=== PATIENT | female | born 1985 | race Caucasian/White ===

== ENCOUNTER 2016-07-29 10:53 | Observation (INO) | payer BC, OTHER ==
[~2016-07-29 10:53] MED LIST: GLYCOPYRROLATE INJ 0.4 MG/2 ML VIAL ONE; LIDOCAINE 2% INJ-PF (20 MG/ML) 10 ML AMPUL ONE; METOCLOPRAMIDE HCL INJ/PF 10 MG/2 ML SDV ONE; ONDANSETRON HCL INJ/PF 4 MG/2 ML SDV ONE; SUCCINYLCHOLINE CHLORIDE INJ 200 MG/10 ML VIAL ONE
[2016-07-29] MEDS ORDERED: NORMAL SALINE 1000 ML 1,000 ML IV ONE ×2 (11:23→16:14)
--- NOTE | 2016-07-29 11:23 | ER Document Report ---
ED Medical Screen (RME) - General Stated Complaint: RIGHT SIDE ABDOMINAL PAIN Time seen by provider: 11:20 Mode of Arrival: Wheelchair Information source: Patient Notes: 30-year-old G0 female sent by Dr. Spencer because of the amount of tenderness that she had and her right abdomen (possible surgical exam) this morning she went to [facility] on Friday due to fever or diarrhea nausea and vomiting and the transvaginal ultrasound and IV contrast CT showed a ruptured ovarian cyst. The pain is worse today. Last food intake was jello 3-5 @ 2100. LMP 05-11 I have greeted and performed a rapid initial assessment of this patient. A comprehensive ED assessment, evaluation of the patient, analysis of test results , and completion of the medical decision making process will be conducted by additional ED providers. - Related Data Allergies/Adverse Reactions: No Known Allergies Allergy (Verified 03/26/13 09:30) Past Medical History - Past Medical History Cardiac Medical History: Denies: Hx Coronary Artery Disease, Hx Hypertension Pulmonary Medical History: Denies: Hx Asthma Endocrine Medical History: Denies: Hx Diabetes Mellitus Type 1, Hx Diabetes Mellitus Type 2 - Immunizations Hx Diphtheria, Pertussis, Tetanus Vaccination: Yes Physical Exam - Vital signs Vitals: Temp Pulse Resp BP Pulse Ox 97.5 F 110 H 16 114/68 100 07/29/16 11:07/29/16 11:07/29/16 11:07/29/16 11:07/29/16 11:01 Course - Vital Signs Vital signs: Temp Pulse Resp BP Pulse Ox 97.5 F 110 H 16 114/68 100 07/29/16 11:01 07/29/16 11:07/29/16 11:01 07/29/16 11:01 07/29/16 11:01
[2016-07-29 12:03] LABS: ABSOLUTE EOSINOPHILS # (AUTO) 0.2 10^3/uL (0.0-0.6); ABSOLUTE LYMPHOCYTES (AUTO) 0.9 10^3/uL (0.5-4.7); ABSOLUTE MONOCYTES (AUTO) 0.9 10^3/uL (0.1-1.4); ABSOLUTE NEUT (AUTO) 9.7 10^3/uL (1.7-8.2); BASOPHILS % (AUTO) 0.4 % (0-2); EOSINOPHILS % (AUTO) 1.3 % (0-6); HEMATOCRIT 40.5 % (36.0-47.0); HEMOGLOBIN 13.5 g/dL (12.0-15.5); LYMPHOCYTES % (AUTO) 7.5 % (13-45); MEAN CORPUSCULAR HEMOGLOBIN 30.4 pg (27.0-33.4); MEAN CORPUSCULAR HGB CONC 33.3 g/dL (32.0-36.0); MEAN CORPUSCULAR VOLUME 91 fl (80-97); MONOCYTES % (AUTO) 7.7 % (3-13); RED BLOOD COUNT 4.44 10^6/uL (3.72-5.28); RED CELL DISTRIBUTION WIDTH 13.7 % (11.5-14.0); SEGMENTED NEUTROPHILS % (AUTO) 83.1 % (42-78); WHITE BLOOD COUNT 11.6 10^3/uL (4.0-10.5)
[2016-07-29] MEDS ORDERED: PROMETHAZINE HCL INJ 25 MG/1 ML VIAL IM ONE (12:24)
[2016-07-29 12:30] LABS: ALANINE AMINOTRANSFERASE 26 U/L (9-52); ALBUMIN 3.8 g/dL (3.5-5.0); ALKALINE PHOSPHATASE 68 U/L (38-126); ANION GAP 15 (5-19); ASPARTATE AMINO TRANSFERASE 16 U/L (14-36); BILIRUBIN,TOTAL 0.4 mg/dL (0.2-1.3); BLOOD UREA NITROGEN 10 mg/dL (7-20); CALCIUM 9.1 mg/dL (8.4-10.2); CARBON DIOXIDE 22 mmol/L (22-30); CHLORIDE 103 mmol/L (98-107); CREATININE RESULT 0.79 mg/dL (0.52-1.25); GLUCOSE 102 mg/dL (75-110); POTASSIUM 3.5 mmol/L (3.6-5.0); SODIUM 140.4 mmol/L (137-145); TOTAL PROTEIN 6.7 g/dL (6.3-8.2)
[2016-07-29] MEDS ORDERED: PROMETHAZINE HCL INJ 50 MG/1 ML VIAL IM ONE (13:00)
[2016-07-29] MEDS ORDERED: METOCLOPRAMIDE HCL INJ/PF 10 MG/2 ML SDV IV ONE (14:09)
[2016-07-29] MEDS ORDERED: DIPHENHYDRAMINE HCL 50 MG/ML VIAL IV ONE (14:09)
[2016-07-29] MEDS ORDERED: MORPHINE SULFATE 10 MG/ML INJ IV ONE (14:09)
[2016-07-29] MEDS ORDERED: HYDROMORPHONE HCL INJ/PF 2 MG/ML AMPULE IV ONE (14:31)
[2016-07-29] MEDS ORDERED: ONDANSETRON HCL INJ/PF 4 MG/2 ML SDV IV ONE (14:31)
--- NOTE | 2016-07-29 14:53 | ER Document Report ---
ED General - General Chief Complaint: Abdominal Pain Stated Complaint: RIGHT SIDE ABDOMINAL PAIN Mode of Arrival: Wheelchair Information source: Patient Notes: 22-year-old female presents with complaints of right lower quadrant pain. Patient notes the pain is generalized and worsens with palpation. She was seen a few days prior at an outside emergency department noted to have a ruptured cyst, encouraged to follow-up with [facility]. Patient went to [facility] today who sent her in for evaluation of her appendix Patient admits to nausea vomiting TRAVEL OUTSIDE OF THE [place] IN LAST 30 DAYS: No - HPI Onset: Other - 3-4 days Onset/Duration: Persistent Quality of pain: Achy Severity: Mild Pain Level: 2 Associated symptoms: Nausea, Vomiting Exacerbated by: Denies Relieved by: Denies Similar symptoms previously: Yes Recently seen / treated by doctor: Yes - Related Data Allergies/Adverse Reactions: No Known Allergies Allergy (Verified 03/26/13 09:30) Past Medical History - General Information source: Patient - Social History Smoking Status: Never Smoker Cigarette use (# per day): No Chew tobacco use (# tins/day): No Smoking Education Provided: No Frequency of alcohol use: Rare Drug Abuse: None Family History: Reviewed & Not Pertinent Patient has suicidal ideation: No Patient has homicidal ideation: No - Past Medical History Cardiac Medical History: Denies: Hx Coronary Artery Disease, Hx Hypertension Pulmonary Medical History: Denies: Hx Asthma Endocrine Medical History: Denies: Hx Diabetes Mellitus Type 1, Hx Diabetes Mellitus Type 2 Renal/ Medical History: Denies: Hx Peritoneal Dialysis - Immunizations Hx Diphtheria, Pertussis, Tetanus Vaccination: Yes Review of Systems - Review of Systems Notes: REVIEW OF SYSTEMS: CONSTITUTIONAL : Denies fever, chills, or sweats. Denies recent illness. EENT: Denies eye, ear, throat, or mouth pain or symptoms. Denies nasal or sinus congestion or discharge. Denies throat, tongue, or mouth swelling or difficulty swallowing. CARDIOVASCULAR: Denies chest pain. Denies palpitations or racing or irregular heart beat. Denies ankle edema. RESPIRATORY: Denies cough, cold, or chest congestion. Denies shortness of breath, difficulty breathing, or wheezing. GASTROINTESTINAL: Admits nausea vomiting abdominal pain GENITOURINARY: Denies difficulty urinating, painful urination, burning, frequency, blood in urine, or discharge. FEMALE GENITOURINARY: Denies vaginal bleeding, heavy or abnormal periods, irregular periods. Denies vaginal discharge or odor. MUSCULOSKELETAL: Denies back or neck pain or stiffness. Denies joint pain or swelling. SKIN: Denies rash, lesions or sores. HEMATOLOGIC : Denies easy bruising or bleeding. LYMPHATIC: Denies swollen, enlarged glands. NEUROLOGICAL: Denies confusion or altered mental status. Denies passing out or loss of consciousness. Denies dizziness or lightheadedness. Denies headache. Denies weakness or paralysis or loss of use of either side. Denies problems with gait or speech. Denies sensory loss, numbness, or tingling. Denies seizures. PSYCHIATRIC: Denies anxiety or stress. Denies depression, suicidal ideation, or homicidal ideation. ALL OTHER SYSTEMS REVIEWED AND NEGATIVE. Dictation was performed using [employer] voice recognition software PHYSICAL EXAMINATION: GENERAL: Well-appearing, well-nourished and in no acute distress. HEAD: Atraumatic, normocephalic. EYES: Pupils equal round and reactive to light, extraocular movements intact, conjunctiva are normal. ENT: Nares patent, oropharynx clear without exudates. Moist mucous membranes. NECK: Normal range of motion, supple without lymphadenopathy LUNGS: Breath sounds clear to auscultation bilaterally and equal. No wheezes rales or rhonchi. HEART: Regular rate and rhythm without murmurs ABDOMEN: Soft, generalized tenderness worse in the right lower quadrant with some guarding Female : deferred Musculoskeletal: Normal range of motion, no pitting or edema. No cyanosis. NEUROLOGICAL: Cranial nerves grossly intact. Normal speech, normal gait. Normal sensory, motor exams PSYCH: Normal mood, normal affect. SKIN: Warm, Dry, normal turgor, no rashes or lesions noted. Physical Exam - Vital signs Vitals: Temp Pulse Resp BP Pulse Ox 97.5 F 110 H 16 114/68 100 07/29/16 11:01 07/29/16 11:01 07/29/16 11:01 07/29/16 11:01 07/29/16 11:01 Course - Re-evaluation Re-evalutation: 07/29/16 14:53 CT of the abdomen is pending lab work notes no significant abnormality except mild white count 07/29/16 16:12 CT is consistent with acute appendicitis, Dr. Huang has been notified and will admit the patient to his service - Vital Signs Vital signs: Temp Pulse Resp BP Pulse Ox 97.5 F 110 H 16 114/68 100 07/29/16 11:01 07/29/16 11:01 07/29/16 11:01 07/29/16 11:01 07/29/16 11:01 - Laboratory Result Diagrams: 07/29/16 11:38 07/29/16 11:38 Laboratory results interpreted by me: 07/29/16 07/29/16 11:38 11:38 WBC 11.6 H Seg Neutrophils % 83.1 H Lymphocytes % 7.5 L Absolute Neutrophils 9.7 H Potassium 3.5 L - Diagnostic Test Radiology reviewed: Image reviewed, Reports reviewed Discharge - Discharge Clinical Impression: Tachycardia Acute appendicitis Qualifiers: Acute appendicitis type: with localized peritonitis Qualified Code(s): K35.3 - Acute appendicitis with localized peritonitis Condition: Stable Disposition: ADMITTED INPATIENT Admitting Provider: Surgicalist Unit Admitted: Surgical Floor
[2016-07-29] MEDS ORDERED: ERTAPENEM SODIUM INJ 1 GM VIAL IV ONE (16:09)
[2016-07-29] MEDS ORDERED: BUPIVACAINE HCL 0.25 % INJ/PF (2.5 MG/1 ML) 30 ML VIAL ONE (16:55)
[2016-07-29] MEDS ORDERED: FENTANYL CITRATE INJ/PF 250 MCG/5 ML AMPULE ONE (17:04)
[2016-07-29] MEDS ORDERED: MIDAZOLAM 2 MG/2 ML INJ ONE (17:04)
[2016-07-29] MEDS ORDERED: PROPOFOL INJ 200 MG/20 ML VIAL IV ONE (17:04)
--- NOTE | 2016-07-29 17:04 | PDOC H&P ---
History of Present Illness Admission Date/PCP: 07/29/16 16:44 ZAYNAB MUÑOZ NP History of Present Illness: TIMUR LEOS is a 30 year old female presents to the emergency department after being seen by Dr. Spangler, [facility] at [facility] today as part of the follow-up plan . 3 days ago the patient developed abdominal pain nonlocalized. He was seen in the emergency department at replaced by [facility] Friday. She had a CT scan of the abdomen and pelvis with IV contrast only was diagnosed with a ruptured ovarian cyst. She was Managed with pain medication and instructed to follow-up with Dr. Spangler today. Dr. Spangler examined the patient fell showed appendicitis and was sent to the emergency department. She had a repeat CT scan of the abdomen and pelvis with IV and oral contrast which showed findings consistent with acute appendicitis. Surgery was consulted and she was advised admission for definitive management. Past Medical History Cardiac Medical History: Denies: Coronary Artery Disease, Hypertension Pulmonary Medical History: Denies: Asthma Endocrine Medical History: Denies: Diabetes Mellitus Type 1, Diabetes Mellitus Type 2 Psychiatric History Note: History depression Past Surgical History Past Surgical History: Reports: None Social History Smoking Status: Never Smoker Frequency of Alcohol Use: None Hx Recreational Drug Use: No Hx Prescription Drug Abuse: No Family History Family History: Reviewed & Not Pertinent Parental Family History Reviewed: Yes Children Family History Reviewed: Yes Sibling(s) Family History Reviewed.: Yes Medication/Allergy Home Medications: Acetaminophen with Codeine [Tylenol #3 Tablet] 1 each PO Q4HP PRN #30 tablet 01/04 Penicillin V Potassium [Penicillin Vk 500 mg Tablet] 500 mg PO BID #20 tablet Cyclobenzaprine HCl [Flexeril 10 Mg Tablet] 10 mg PO TID #15 tablet 03/26/13 Oxycodone HCl/Acetaminophen [Percocet 5-325 mg Tablet] 1 - 2 tab PO ASDIR PRN # 25 tablet 03/26/13 Allergies/Adverse Reactions: No Known Allergies Allergy (Verified 03/26/13 09:30) Physical Exam Vital Signs: Temp Pulse Resp BP Pulse Ox 97.5 F 110 H 16 114/68 100 07/29/16 11:01 07/29/16 11:01 07/29/16 11:01 07/29/16 11:07/29/16 11:01 General appearance: PRESENT: mild distress Head exam: PRESENT: normocephalic Eye exam: PRESENT: EOMI Ear exam: PRESENT: normal external ear exam Mouth exam: PRESENT: moist Neck exam: PRESENT: full ROM Respiratory exam: PRESENT: clear to auscultation ruth Cardiovascular exam: PRESENT: RRR Pulses: PRESENT: normal carotid pulses, normal radial pulses, normal femoral pulses GI/Abdominal exam: PRESENT: other - Tender with guarding particularly right lower quadrant. Extremities exam: PRESENT: full ROM Musculoskeletal exam: PRESENT: full ROM Neurological exam: PRESENT: alert Psychiatric exam: PRESENT: anxious Skin exam: PRESENT: other - Normal Results Impressions: Abdomen/Pelvis CT 07/29/16 00:00 IMPRESSION: Acute appendicitis. Surgical consultation is recommended. Status: Image reviewed by me - Images reviewed by Dr. leach; no free air and no free fluid no phlegmon or cold excellent study with IV and oral contrast showing no evidence of bowel obstruction. There is maulik-appendiceal inflammatory y changes and thickened appendix wall. Assessment & Plan - Diagnosis (1) Acute appendicitis Qualifiers: Acute appendicitis type: with localized peritonitis Qualified Code(s): K35.3 - Acute appendicitis with localized peritonitis Is this a current diagnosis for this admission?: YesPlan: 1. Patient needs admission, obviously fluids, intravenous antibiotics, and operative appendectomy, laparoscopic possible open. This was discussed in detail with the patient including explanation of the risks , benefits and alternatives. She expressed understanding and agrees to proceed. - Time Time Spent: 50 to 70 Minutes Critical Time spent with patient: 15-24 minutes Anticipated discharge: Home
[2016-07-29] MEDS ORDERED: ACETAMINOPHEN 100 ML IV ONE (17:05)
[2016-07-29] MEDS ORDERED: MORPHINE SULFATE 10 MG/ML INJ ONE (17:05)
[2016-07-29] MEDS ORDERED: NORMAL SALINE 1000 ML 1,000 ML IV PRN (18:15)
[2016-07-29] MEDS ORDERED: PROMETHAZINE HCL INJ 25 MG/1 ML VIAL ONE (18:28)
--- NOTE | 2016-07-29 18:31 | Operative Report ---
Operative Report DATE OF SURGERY: 07/29/16 PREOPERATIVE DIAGNOSIS: acute appendicitis POSTOPERATIVE DIAGNOSIS: same OPERATION: Laparoscopic appendectomy SURGEON: TONJA AUSTIN ANESTHESIA: GA TISSUE REMOVED OR ALTERED: one appendix COMPLICATIONS: none ESTIMATED BLOOD LOSS: scant INTRAOPERATIVE FINDINGS: See below PROCEDURE: The patient was taken from the preoperative holding area to the main operating room general anesthesia was induced. The patient voided prior to induction of anesthesia. She was placed in supine position and general anesthesia was induced. The abdomen was exposed, prepped draped sterile fashion. A surgical timeout conducted. Skin was anesthetized with lidocaine with epinephrine.Verres needle inserted into the peritoneal cavity and pneumoperitoneum established. Veress needle was removed and a 5 mm ports was inserted and a 5 mm scope was inserted. There was no evidence of intra-abdominal or visceral injury. Under direct visualization 2 additional ports were placed one 5 mm suprapubic, and one 12 mm left lower quadrant. Findings were significant for acute appendicitis with a dilated edematous appendix readily apparent in the peritoneal cavity. Graspers were placed on the appendix and it was elevated medially and cephalad. The retroperitoneal attachments were released, and the appendix was suspended by the mesial appendix only. We brought onto the field a Endo auto stapler, blue load. Single firing of the stapler the base of the appendix transected the appendix and the appendiceal stump as well as the mesoappendix. This was placed in the Endobag and brought out of the patient to the left lower quadrant port site incision. We checked the right tube and ovary and photographed it for record keeping purposes. These 2 structures were essentially unremarkable. Checked our staple line and there was no significant bleeding. We'll level the patient checked for bleeding and there was none. Sponge counts correct. All ports removed under direct visualization ; pneumoperitoneum evacuated wounds, closed with 0 Vicryl 3-0 Vicryl benzoin and Steri-Strips Patient was extubated and taken to the recovery room in stable condition.
[2016-07-29] MEDS: MORPHINE SULFATE 10 MG/ML INJ IV PRN ×2 (20:04→23:13)
[2016-07-29] MEDS: ONDANSETRON HCL INJ/PF 4 MG/2 ML SDV IV PRN (20:04)
[2016-07-30] MEDS ORDERED: AZITHROMYCIN INJ 500 MG VIAL IV ONE ×2 (00:01→01:35)
[2016-07-30] MEDS: ONDANSETRON HCL INJ/PF 4 MG/2 ML SDV IV PRN ×3 (00:56→22:18)
[2016-07-30] MEDS: OXYCODONE-ACETAMINOPHEN 5-325 MG TABLET PO PRN ×4 (00:56→22:19)
[2016-07-30] MEDS: HYDROCODONE/ACETAMINOPHEN 5-325 MG TABLET PO PRN ×2 (12:28→18:39)
[2016-07-30 13:52] LABS: ABSOLUTE EOSINOPHILS # (AUTO) 0.2 10^3/uL (0.0-0.6); ABSOLUTE LYMPHOCYTES (AUTO) 1.4 10^3/uL (0.5-4.7); ABSOLUTE MONOCYTES (AUTO) 1.1 10^3/uL (0.1-1.4); ABSOLUTE NEUT (AUTO) 7.9 10^3/uL (1.7-8.2); BASOPHILS % (AUTO) 0.3 % (0-2); EOSINOPHILS % (AUTO) 2.2 % (0-6); HEMATOCRIT 32.2 % (36.0-47.0); HEMOGLOBIN 10.9 g/dL (12.0-15.5); HGB HCT DIFFERENCE 0.5; LYMPHOCYTES % (AUTO) 12.9 % (13-45); MEAN CORPUSCULAR HEMOGLOBIN 30.8 pg (27.0-33.4); MEAN CORPUSCULAR HGB CONC 33.7 g/dL (32.0-36.0); MEAN CORPUSCULAR VOLUME 91 fl (80-97); MONOCYTES % (AUTO) 10.4 % (3-13); RED BLOOD COUNT 3.53 10^6/uL (3.72-5.28); RED CELL DISTRIBUTION WIDTH 13.8 % (11.5-14.0); SEGMENTED NEUTROPHILS % (AUTO) 74.2 % (42-78); WHITE BLOOD COUNT 10.6 10^3/uL (4.0-10.5)
--- NOTE | 2016-07-30 18:39 | PROGRESS NOTE E ---
Progress Note NAME: TIMUR LEOS : 1985 AGE: 30Y DATE: 07/30/2016 ROOM: 413 SUBJECTIVE: The patient is postop day 1 from an uncomplicated laparoscopic appendectomy. The patient is complaining of nausea. She is able to drink liquids. She is having flatus. Her pain is controlled with the pain medication, although may be having associated nausea with it. OBJECTIVE: ABDOMEN: Incisions are clean without evidence of infection. No significant distention. No significant bruising. VITAL SIGNS: Temperature is 98.6. Pulse 120. Blood pressure 121/73. Respiratory rate is 18. ASSESSMENT: 1. STATUS POST LAPAROSCOPIC APPENDECTOMY. Her wounds are doing well with only mild nausea that may be related to the Percocet. I recommend switching over to [place]. Continue liquid diet and advance to regular as tolerated. 2. TACHYCARDIA OF UNKNOWN ETIOLOGY. Her heart rate has only been several times below 100 and has been running 110 to 140. She did not have any significant blood loss during surgery, and she should have been hydrated at this time. I would recommend getting follow-up EKG and checking her hemoglobin to make sure that she is not anemic. PLAN: 1. CBC. 2. A 12-lead EKG. 3. Switch to [place] to see if her nausea will improve. DICTATING PHYSICIAN: THAD HENDRIX M.D. [id number] PHY#: [id number] ID: [id number] JOB#: [id number] ACCT: [id number] cc:THAD HENDRIX M.D. >
[2016-07-30 20:32] LABS: ABSOLUTE EOSINOPHILS # (AUTO) 0.4 10^3/uL (0.0-0.6); ABSOLUTE LYMPHOCYTES (AUTO) 1.3 10^3/uL (0.5-4.7); ABSOLUTE NEUT (AUTO) 8.4 10^3/uL (1.7-8.2); BASOPHILS % (AUTO) 0.2 % (0-2); EOSINOPHILS % (AUTO) 3.2 % (0-6); HEMATOCRIT 32.6 % (36.0-47.0); HEMOGLOBIN 10.7 g/dL (12.0-15.5); HGB HCT DIFFERENCE -0.5; LYMPHOCYTES % (AUTO) 11.9 % (13-45); MEAN CORPUSCULAR HGB CONC 32.7 g/dL (32.0-36.0); MEAN CORPUSCULAR VOLUME 92 fl (80-97); MONOCYTES % (AUTO) 9.3 % (3-13); RED BLOOD COUNT 3.56 10^6/uL (3.72-5.28); RED CELL DISTRIBUTION WIDTH 13.6 % (11.5-14.0); SEGMENTED NEUTROPHILS % (AUTO) 75.4 % (42-78); WHITE BLOOD COUNT 11.2 10^3/uL (4.0-10.5)
[2016-07-30 20:56] LABS: ANION GAP 12 (5-19); BLOOD UREA NITROGEN 3 mg/dL (7-20); CALCIUM 8.6 mg/dL (8.4-10.2); CARBON DIOXIDE 24 mmol/L (22-30); CHLORIDE 101 mmol/L (98-107); GLUCOSE 123 mg/dL (75-110); MAGNESIUM 1.7 mg/dL (1.6-2.3); SODIUM 136.5 mmol/L (137-145)
[2016-07-30 21:05] LABS: POTASSIUM 2.7 mmol/L (3.6-5.0)
--- NOTE | 2016-07-30 21:34 | PDOC CONSULTATION ---
Consultation Consult Date: 07/30/16 Attending physician:: YULIYA HENDRIX Consult reason:: TACHYCARDIA History of Present Illness Admission Date/PCP: 07/29/16 16:55 ZAYNAB MUÑOZ NP Patient complains of: ABD PAIN History of Present Illness: 24-year-old female, with past medical history remarkable only for easy bruising, along with mild occasional anxiety and depression, without suicidal or homicidal ideation, status post laparoscopic appendectomy by Dr. Huang late the afternoon of the of this month, seen in consultation from the on-call surgeon today for evaluation of tachycardia. Patient has been discussed with daytime hospitalist who discussed the patient with the on-call surgeon . Please refer to emergency room physician notes, along with the admission history and physical and operative report by Dr. Huang. Patient was taken to the operating room where she underwent laparoscopic appendectomy for acute appendicitis. Review of the documentation reveals that she was out of the operating room at 6:15 PM on the . Review of her vital sign records Reveals a maximum pulse rate documented at 10: 30 PM on the of 142 with a pulse of 141 at 11 PM last night. Pulse of 130 at the time she left the operating room. Pulse of 110 at 11 AM yesterday. Pulse of 120 at 12:30 AM this morning. Since that time, her maximum pulse rate has been 116 at 8:11 PM this evening. At the bedside short while ago, her pulse was 108. There is no history of problems with rapid heart rate or other cardiac problems , including hypertension, myocardial infarction, congestive heart failure. No history of pulmonary embolus or DVT. No recent long trip with prolonged inactivity, or unusual lower extremity swelling or tenderness. No personal or family history of thyroid disease. Denies chest pain. States she gets occasional shortness of breath with one of her anxiety attacks, but this happens only approximately once every 2 weeks. Does describe approximately 10 episodes of diarrhea postoperatively. No blood. No history of C. difficile infection. History of MRSA skin infection in 2009. Has tolerated small amounts of by mouth intake since surgery. Has not ambulated much since the operation. Encouraged to ambulate more. Currently resting quietly, complaining of only mild abdominal discomfort. Laboratory results are listed in [facility] and are reviewed. X-ray summary results are listed below, with full report(s) reviewed. . EKG reviewed. No old EKG available for comparison. Social history/personal habits: . No children. Lives with . Is a process consultant. No use of alcohol tobacco or illicit drugs. Allergies/adverse reactions NKDA. Home medications consist only of one half milligram of Ativan twice a day when necessary for anxiety. States she takes this only once every 2 weeks or so. REVIEW OF SYSTEMS: Constitutional: No fever or chills. Eyes: No current vision complaints. ENT: No swallowing problems or complaints. No hearing problems or complaints. Pulmonary: No current complaints. Cardiovascular: See history and present illness. Gastrointestinal: See history and present illness. Skin: No current complaints, including rashes. Hematologic: Easy bruising. Neurologic: No current complaints, including numbness or tingling. Musculoskeletal: No current complaints, including painful joints. Psychiatric: Mild Anxiety depression; denies suicidal or homicidal ideation. Endocrine: No current complaints, including polyuria. Genitourinary: No current complaints, including dysuria. PHYSICAL EXAMINATION: 5 feet 6 inches tall. 78 kg. BMI 27.8 kg/m. Blood pressure 107/60. Pulse 108 and regular. Temperature 98.6. Respirations are 16 and unlabored. 98% saturation on room air. Slightly overweight otherwise well-nourished well-developed young female appearing a bit younger than her stated age. Pleasant awake alert and cooperative. No obvious distress other than perhaps mildly anxious. Her female floor nurse Lola is present. Skin is warm and dry. No grossly obvious evidence of rash in areas of skin examined. No subcutaneous nodules palpated. ENT: Hearing grossly normal to normal conversation. Eyes: No scleral icterus. Pupils equal and reactive to light at 4 mm. Keeler conjunctivae. Psychiatric: Reasonable insight into acute and chronic medical issues. Oriented to time location and why here. Lungs: Auscultation reveals clear and equal breath sounds bilaterally. No use of accessory respiratory muscles. Cardiovascular: Heart regular rate and rhythm, without gallop murmur or rub. No carotid or abdominal aortic bruits. No ankle or pedal edema. Faintly palpable dorsalis pedis pulses. Abdomen: soft, slightly obese, slightly distended with positive bowel sounds. Mild diffuse tenderness, without evidence of guarding or peritoneal signs. Unable to adequately evaluate abdomen for masses or organomegaly due to distention, body habitus, and discomfort. Laparoscopic incision sites appear clean and dry without obvious evidence of infection. Extremities: Feet are warm and dry. No calf tenderness to compression. No grossly obvious visual evidence of calf swelling. Gentle manipulation of lower extremities fails to reveal any obvious evidence of injury or instability to knees hips or ankles. Neurologic: Moves upper extremities grossly normally. Patellar reflexes absent. Absent Babinski. Light touch is intact at feet. Dorsiflexion and plantarflexion of feet 5 / 5 and symmetric. Past Medical History Cardiac Medical History: Denies: Congestive Heart Failure, Coronary Artery Disease, DVT, Hyperlipidema , Hypertension, Pulmonary Embolism Pulmonary Medical History: Denies: Asthma, Chronic Obstructive Pulmonary Disease (COPD) EENT Medical History: Denies: Eyes, Ears, Throat Neurological Medical History: Denies: Hemorrhagic CVA, Ischemic CVA, Seizures Endocrine Medical History: Denies: Diabetes Mellitus Type 1, Diabetes Mellitus Type 2, Hyperthyroidism, Hypothyroidism Renal/ Medical History: Reports: Other - Right ovarian cyst, laparoscopy, 10/2016 GI Medical History: Denies: Cirrhosis, Gastroesophageal Reflux Disease, Hepatitis, Peptic Ulcer Disease Musculoskeltal Medical History: Denies: Arthritis Skin Medical History: Reports: None Denies: Eczema, Psoriasis Psychiatric Medical History: Reports: Depression, General Anxiety Disorder Denies: Alcohol Dependency, Substance Abuse, Tobacco Dependency Hematology: Reports: Other - Easy bruising Infectious Medical History: Reports: 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 Denies: Clostridium Difficile, Hepatitis B, Hepatitis C Past Surgical History Past Surgical History: Reports: None, Appendectomy Social History Information Source: Patient, [facility] Records Lives with: Spouse/Significant other Smoking Status: Former Smoker Frequency of Alcohol Use: None Hx Recreational Drug Use: No Hx Prescription Drug Abuse: No - Advance Directive Resuscitation Status: Full Code Surrogate healthcare decision maker:: Family History Family History: Reviewed & Not Pertinent Parental Family History Reviewed: Yes Children Family History Reviewed: NA Sibling(s) Family History Reviewed.: Yes Medication/Allergy Home Medications: RX: Ondansetron HCl [Zofran 4 mg Tablet] 4 mg PO Q4HP PRN 07/29/16 Bifidobacterium Infantis [Align 4 mg Capsule] 4 mg PO BID #28 07/31/16 RX: Metronidazole [Flagyl 500 mg Tablet] 500 mg PO Q8 #30 tablet 07/31/16 RX: Oxycodone HCl/Acetaminophen [Percocet 5-325 mg Tablet] 1 - 2 tab PO Q4HP PRN #30 tablet 07/31/16 Allergies/Adverse Reactions: No Known Allergies Allergy (Verified 03/26/13 09:30) Physical Exam Vital Signs: Temp Pulse Resp BP Pulse Ox 98.6 F 116 H 16 107/60 98 07/30/16 20:11 07/30/16 20:11 07/30/16 20:11 07/30/16 20:11 07/30/16 20:11 Intake & Output 07/29/16 07/30/16 07/31/16 00:59 00:59 00:59 Intake Total 1760 2600 Output Total 165 Balance 1595 2600 Weight 78 kg Results Laboratory Results: 07/30/16 20:25 07/30/16 07/30/16 13:36 20:25 WBC 10.6 H 11.2 H RBC 3.53 L 3.56 L Hgb 10.9 L D 10.7 L Hct 32.2 L 32.6 L MCV 91 92 MCH 30.8 30.0 MCHC 33.7 32.7 RDW 13.8 13.6 Plt Count 252 266 Seg Neutrophils % 74.2 75.4 Lymphocytes % 12.9 L 11.9 L Monocytes % 10.4 9.3 Eosinophils % 2.2 3.2 Basophils % 0.3 0.2 Absolute Neutrophils 7.9 8.4 H Absolute Lymphocytes 1.4 1.3 Absolute Monocytes 1.1 1.0 Absolute Eosinophils 0.2 0.4 Absolute Basophils 0.0 0.0 Impressions: Abdomen/Pelvis CT 07/29/16 00:00 IMPRESSION: Acute appendicitis. Surgical consultation is recommended. Assessment & Plan - Diagnosis (1) Acute appendicitis Qualifiers: Acute appendicitis type: with localized peritonitis Qualified Code(s): K35.3 - Acute appendicitis with localized peritonitis Is this a current diagnosis for this admission?: Yes (2) Diarrhea Qualifiers: Diarrhea type: unspecified type Qualified Code(s): R19.7 - Diarrhea , unspecified Is this a current diagnosis for this admission?: YesPlan: Stool for C. difficile. No recent antibiotic use other than for appendectomy. (3) Hypokalemia Is this a current diagnosis for this admission?: YesPlan: Potassium replacement. Follow-up Chem-7. (4) S/P appendectomy Is this a current diagnosis for this admission?: Yes (5) Tachycardia Is this a current diagnosis for this admission?: YesPlan: Multiple contributing factors include pain, underlying anxiety, perhaps an element of dehydration, along with her hypokalemia. Low suspicion for pulmonary embolus. Patient has been placed on telemetry. Will also add prophylactic Lovenox, but order has also been given to please clear this with surgeon prior to administering. Incentive spirometry at bedside, with instructions to nursing staff to please encourage use. Day hospitalist team will follow her. 64 minutes spent in evaluation and management of patient. Thank you for asking us to see this unfortunate patient.
[2016-07-30] MEDS ORDERED: ENOXAPARIN SODIUM INJ 40 MG/0.4 ML DISP.SYRIN SUBCUT ONE (22:00)
[2016-07-30] MEDS: POTASSI CL 20 MEQ/50 ML RIDER 50 ML IV SCH (22:20)
--- NOTE | 2016-07-30 22:43 | EKG REPORT ---
SEVERITY:- BORDERLINE ECG - SINUS TACHYCARDIA BORDERLINE T ABNORMALITIES, DIFFUSE LEADS : Confirmed by: Abdirizak Valadez 30-Jul-2016 22:43:01
[2016-07-30] MEDS ORDERED: METRONIDAZOLE 500 MG TABLET PO ONE (23:45)
[2016-07-31] MEDS ORDERED: METRONIDAZOLE 500 MG TABLET ONE (00:08)
[2016-07-31] MEDS: POTASSI CL 20 MEQ/50 ML RIDER 50 ML IV SCH ×2 (00:20→02:15)
[2016-07-31] MEDS: METRONIDAZOLE 500 MG TABLET PO SCH ×2 (00:20→06:47)
[2016-07-31] MEDS: HYDROCODONE/ACETAMINOPHEN 5-325 MG TABLET PO PRN (04:36)
[2016-07-31 05:02] LABS: ABSOLUTE EOSINOPHILS # (AUTO) 0.3 10^3/uL (0.0-0.6); ABSOLUTE LYMPHOCYTES (AUTO) 1.6 10^3/uL (0.5-4.7); ABSOLUTE MONOCYTES (AUTO) 0.7 10^3/uL (0.1-1.4); ABSOLUTE NEUT (AUTO) 5.8 10^3/uL (1.7-8.2); BASOPHILS % (AUTO) 0.4 % (0-2); EOSINOPHILS % (AUTO) 3.7 % (0-6); HEMATOCRIT 30.8 % (36.0-47.0); HEMOGLOBIN 10.4 g/dL (12.0-15.5); HGB HCT DIFFERENCE 0.4; MEAN CORPUSCULAR HEMOGLOBIN 30.8 pg (27.0-33.4); MEAN CORPUSCULAR HGB CONC 33.7 g/dL (32.0-36.0); MEAN CORPUSCULAR VOLUME 92 fl (80-97); MONOCYTES % (AUTO) 8.3 % (3-13); RED BLOOD COUNT 3.37 10^6/uL (3.72-5.28); RED CELL DISTRIBUTION WIDTH 13.8 % (11.5-14.0); SEGMENTED NEUTROPHILS % (AUTO) 68.6 % (42-78); WHITE BLOOD COUNT 8.5 10^3/uL (4.0-10.5)
[2016-07-31 05:24] LABS: ANION GAP 10 (5-19); BLOOD UREA NITROGEN 3 mg/dL (7-20); CALCIUM 8.6 mg/dL (8.4-10.2); CARBON DIOXIDE 25 mmol/L (22-30); CHLORIDE 107 mmol/L (98-107); CREATININE RESULT 0.62 mg/dL (0.52-1.25); GLUCOSE 90 mg/dL (75-110); SODIUM 141.9 mmol/L (137-145)
[2016-07-31 05:29] LABS: POTASSIUM 3.7 mmol/L (3.6-5.0)
[2016-07-31 07:21] LABS: FREE T3 3.57 pg/mL (2.77-5.27)
[2016-07-31] MEDS ORDERED: ENOXAPARIN SODIUM INJ 40 MG/0.4 ML DISP.SYRIN SUBCUT SCH (08:00)
[2016-07-31] MEDS: OXYCODONE-ACETAMINOPHEN 5-325 MG TABLET PO PRN (08:14)
--- NOTE | 2016-07-31 09:13 | DISCHARGE SUMMARY E ---
Discharge Summary NAME: TIMUR LEOS : 1985 AGE: 30Y ADMITTED: 07/29/2016 DISCHARGED: 07/31/2016 REASON FOR ADMISSION: Abdominal pain. HISTORY OF PRESENT ILLNESS: The patient is a 30-year-old female who presented with a 3-day history of abdominal pain to the emergency room. She had started to have right lower quadrant abdominal pain 3 days prior to admission and was seen at an outside facility. CT scan of the abdomen and pelvis at that time showed possible ruptured cyst as the cause of her pain. She was given pain medication and discharged home. She had followup with her shackler on the day of admission who had felt that her abdominal pain was significant and directed her to the emergency room. She was seen in the emergency room and the CT scan of the abdomen and pelvis was consistent with acute appendicitis. She had a white blood cell count elevation of 11.6. PRINCIPAL DIAGNOSIS: Acute appendicitis. OTHER MEDICAL PROBLEMS: 1. C difficile colitis. 2. Tachycardia probably related to the C. diff. infection. PROCEDURE: The patient underwent a laparoscopic appendectomy on 07/29/2016. CONSULTATIONS: Hospitalist consultation was obtained in order to evaluate the tachycardia. HOSPITAL COURSE: The patient was admitted to the hospital and given a preoperative dose of IV antibiotics. She was then taken to surgery and underwent the above procedure. She was then transferred to the floor in stable condition. She had some mild nausea, but this improved over the next 24 hours with antiemetics. She was switched from IV to oral pain medication, along with starting on full liquids and advancing to regular. She remained tachycardic from admission, having a heart rate of 120, going up to 140 at times. An EKG showed sinus tachycardia. A hospitalist consultation was obtained in which they did elucidate that she had been on antibiotics a week prior to admission and felt that she may have C. diff. colitis. A stool sample was sent out and this did indeed come back as positive for C difficile. She was then started on Flagyl. On postoperative day 2, her heart rate decreased down to 98. She was tolerating oral pain medication and having a regular diet. DISPOSITION: Patient discharged home. FOLLOWUP: Follow up in [facility] in 1 week. DISCHARGE INSTRUCTIONS: No heavy lifting. May shower. Regular diet. Flagyl 500 mg p.o. every 8 hours for the next 10 days; Percocet 5/325 one to two p.o. every 4 to 6 hours p.r.n. pain. DICTATING PHYSICIAN: THAD HENDRIX M.D. [id number] PHY#: [id number] ID: [id number] JOB#: [id number] ACCT: [id number] cc:Lisha LORENZO M.D. TIMOTHY PATSELAS, M.D. >
[2016-07-31 09:44] VITALS: BP 107/62
[2016-07-31] MEDS ORDERED: LACTOBACILLUS ACIDOPHILUS 250 MG TAB PO SCH (13:00)
--- NOTE | 2016-07-31 17:16 | PDOC PROGRESS REPORT ---
Addendum entered and electronically signed by LORI HARRIS NP 08/02/16 07: 59: Original Note: Subjective Progress Note for:: 07/31/16 Subjective:: The patient symptoms overall have improved. The patient was hydrated overnight. The patient has been seen and evaluated by surgery and has discharge the patient. Do agree with the regimen of Flagyl however would additionally add probiotic therapy. I did prescribe this. Physical Exam Vital Signs: Temp Pulse Resp BP Pulse Ox 98.4 F 99 16 107/62 99 07/31/16 11:03 07/31/16 11:03 07/31/16 11:03 07/31/16 11:03 07/31/16 11:03 Intake & Output 07/29/16 07/30/16 07/31/16 23:59 23:59 23:59 Intake Total 690 450 Balance 690 450 Weight 80.6 kg Results Laboratory Results: 07/31/16 04:55 07/31/16 04:55 07/30/16 07/30/16 07/30/16 20:25 20:25 20:25 WBC 11.2 H RBC 3.56 L Hgb 10.7 L Hct 32.6 L MCV 92 MCH 30.0 MCHC 32.7 RDW 13.6 Plt Count 266 Seg Neutrophils % 75.4 Lymphocytes % 11.9 L Monocytes % 9.3 Eosinophils % 3.2 Basophils % 0.2 Absolute Neutrophils 8.4 H Absolute Lymphocytes 1.3 Absolute Monocytes 1.0 Absolute Eosinophils 0.4 Absolute Basophils 0.0 Sodium 136.5 L Potassium 2.7 L* Chloride 101 Carbon Dioxide 24 Anion Gap 12 BUN 3 L Creatinine 0.60 Est GFR ( Amer) > 60 Est GFR (Non-Af Amer) > 60 Glucose 123 H Calcium 8.6 Magnesium 1.7 TSH 0.40 L Free T4 Free T3 pg/mL 07/31/16 07/31/16 07/31/16 04:55 04:55 04:55 WBC 8.5 RBC 3.37 L Hgb 10.4 L Hct 30.8 L MCV 92 MCH 30.8 MCHC 33.7 RDW 13.8 Plt Count 234 Seg Neutrophils % 68.6 Lymphocytes % 19.0 Monocytes % 8.3 Eosinophils % 3.7 Basophils % 0.4 Absolute Neutrophils 5.8 Absolute Lymphocytes 1.6 Absolute Monocytes 0.7 Absolute Eosinophils 0.3 Absolute Basophils 0.0 Sodium 141.9 Potassium 3.7 D Chloride 107 Carbon Dioxide 25 Anion Gap 10 BUN 3 L Creatinine 0.62 Est GFR ( Amer) > 60 Est GFR (Non-Af Amer) > 60 Glucose 90 Calcium 8.6 Magnesium TSH Free T4 1.68 Free T3 pg/mL 3.57 Impressions: Abdomen/Pelvis CT 07/29/16 00:00 IMPRESSION: Acute appendicitis. Surgical consultation is recommended. Assessment & Plan - Diagnosis (1) C. difficile diarrhea Is this a current diagnosis for this admission?: YesPlan: To agree with Flagyl dosing as well will additionally add probiotic therapy. Patient can follow-up with primary care after the course of antibiotics for further workup. - Time Time Spent with patient: Less than 15 minutes Medications reviewed and adjusted accordingly: Yes Anticipated discharge: Home Within: within 24 hours
== END 2016-07-31 12:48 | disposition home or self-care (01) ==
LOC: ER 10:53 → UNDOADMIN 16:44 → EH 16:44 → INTOOBSV 16:55 → 4N 19:38 → OBSVTOIN 07-30 12:32 → INTOOBSV 07-30 12:32
PROVIDERS: ADMIT Surgery; ATTEND Surgery
PROC: 0DTJ4ZZ Resection of Appendix, Percutaneous Endoscopic Approach (ICD-10-PCS; principal; 2016-07-29 16:30)
DX: K35.3 Acute appendicitis with localized peritonitis (principal); A04.7 Enterocolitis due to Clostridium difficile; R00.0 Tachycardia, unspecified; E87.6 Hypokalemia; D64.9 Anemia, unspecified; F41.1 Generalized anxiety disorder; F32.9 Major depressive disorder, single episode, unspecified; Z79.899 Other long term (current) drug therapy; Z86.14 Personal history of Methicillin resistant Staphylococcus aureus infection; Z87.891 Personal history of nicotine dependence
CPT/HCPCS: 44970; 99285; 96372; 96374; 96375; 36415 ×3; 84439; 84702; 83735; 84443; 85025 ×3; 80048 ×2; 80053; 84481; 87493 ×2; 88304 ×2; 74177; 93005; 94799; 93010; G0378 ×2; J2250; J1200; J3010; J1335; J2765; J2270; J1650; J2550 ×2; J0330; J3490 ×2; J2405 ×2; J3480 ×2; J7030; J2704; J0456; J0131; 840